=== PATIENT | female | born 1955 ===

== ENCOUNTER 2019-11-14 21:43 | Emergency (ER) | payer BC ==
[~2019-11-14] VITALS: Ht 165.1 cm; Wt 100.0 kg
--- NOTE | 2019-11-15 00:10 | NUR ---
PT RESTING WITH EYES CLOSED. MONITOR IN PLACE.
--- NOTE | 2019-11-15 02:07 | NUR ---
ATTEMPTED TO DC PT. PT UNSTEADY AND ACTIVELY VOMITING. WILL ATTEMPT DC IN AWHILE.
[2019-11-15 02:08] VITALS: BP 101/80
== END 2019-11-15 02:22 | disposition home or self-care (01) ==
LOC: ED 11-15 00:55
DX: F10.129 Alcohol abuse with intoxication, unspecified (principal); Y90.9 Presence of alcohol in blood, level not specified
CPT/HCPCS: 36415; 80307; 99283